=== PATIENT | female | born 1985 | race Caucasian/White ===

== ENCOUNTER 2021-02-23 10:55 | Emergency (ER) | payer MEDICAID ==
[~2021-02-23] VITALS: Ht 167.6 cm; Wt 69.5 kg
[~2021-02-23 10:55] MED LIST: NO HOME MEDS
[2021-02-23 11:10] VITALS: BP 103/67
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
--- NOTE | 2021-02-23 14:36 | NUR ---
PATIENT OUT TO SMOKE
[2021-02-23] MEDS ORDERED: ibuprofen tablet 400 MG TABLET PO ONE (14:40)
[2021-02-23] MEDS ORDERED: IBUP-1984 PO (14:41)
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
== END 2021-02-23 15:17 | disposition home or self-care (01) ==
LOC: ER 10:56
DX: S50.01XA Contusion of right elbow, initial encounter (principal); M79.601 Pain in right arm; F12.90 Cannabis use, unspecified, uncomplicated; Z79.899 Other long term (current) drug therapy; Z90.89 Acquired absence of other organs; W19.XXXA Unspecified fall, initial encounter; Y93.89 Activity, other specified; Y92.89 Other specified places as the place of occurrence of the external cause; Y99.8 Other external cause status
CPT/HCPCS: 73080; 99283